=== PATIENT | female | born 1975 | race Caucasian/White ===

== ENCOUNTER 2016-12-27 10:32 | Emergency (ER) | payer MEDICAID ==
[2010-03-20 14:28] VITALS: BMI 37.7
[2016-12-27 11:27] LABS: BASOPHILS 0.3 % (0-2); EOSINOPHILS 1.7 % (0-7); HEMOGLOBIN 11.2 g/dL (12-16); IMMATURE GRANULOCYTES 0.2 % (0-5); LYMPHOCYTES 21.8 % (15-50); MCH 23.1 pg (26.0-34.0); MCHC 30.3 g/dL (31.0-37.0); MCV 76.4 fL (80.0-100.0); MEAN PLATELET VOLUME 8.9 fL (7.4-10.4); MONOCYTES 5.8 % (2-11); NEUTROPHILS 70.2 % (40-80); RBC 4.84 10x6/uL (4.00-5.40); RDW 17.7 % (11.5-14.5); WBC 6.6 10x3/uL (4.8-10.8)
[2016-12-27 11:42] LABS: PLATELET COUNT 315 10x3/uL (130-400)
[2016-12-27 11:44] LABS: HCG SERUM NEGATIVE (NEGATIVE)
== END 2016-12-27 13:41 | disposition home or self-care (01) ==
LOC: D.ER 10:32
PROVIDERS: Emergency Medicine
DX: N92.0 Excessive and frequent menstruation with regular cycle (principal); I10 Essential (primary) hypertension

== ENCOUNTER → 2018-06-14 08:00 | Outpatient (CLI) | payer MEDICAID ==
[2010-03-20 14:28] VITALS: BMI 37.7
== END | disposition home or self-care (01) ==
LOC: D.MAMMO 08:00
PROVIDERS: ATTEND Family Medicine
DX: Z00.00 Encounter for general adult medical examination without abnormal findings (principal)